=== PATIENT | male | born 1955 | race Caucasian/White ===

== ENCOUNTER 2020-05-22 12:38 | Outpatient (REF) | payer OTHER, SELFPAY ==
--- NOTE | 2020-05-22 13:00 | CT_ITS ---
EXAMINATION: CT CHEST SCREENING CLINICAL INFORMATION: Lung cancer screening COMPARISON: Previous exams most recent April 2019 TECHNIQUE: Multidetector volumetric CT imaging of the chest is performed without contrast using low dose technique. Additional 2D coronal and sagittal reformatted images and axial 3D maximum intensity projection (MIP) images are generated on the CT workstation. This CT examination was performed using dose optimization techniques as appropriate, variously including the following: *Automated exposure control *Adjustment of mA and/or kV according to patient size (this includes techniques or standardized protocols for targeted exams where dose is matched to indication/reason for exam; i.e. extremities or head) *Use of iterative reconstruction technique DLP: 60 mGy-cm FINDINGS: LUNGS: There is evidence of mild emphysema. The questioned 2 mm left upper lobe nodule axial image 205 series 5 is stable. No other pulmonary nodule is seen. There is linear scarring or segmental atelectasis at the lung bases. No endobronchial or endotracheal lesion is seen. MEDIASTINUM: There are small mediastinal lymph nodes. The heart does not appear enlarged. There is mild coronary artery calcification. There is no pericardial effusion. The thoracic aorta is normal in caliber. PLEURA: There is no pleural effusion. No pleural mass or thickening. AXILLA: There are small bilateral axillary lymph nodes. No enlarged lymph nodes or chest wall mass is seen. UPPER ABDOMEN: The low-attenuation left adrenal nodule is stable. OSSEOUS STRUCTURES: There are degenerative changes of the spine. IMPRESSION: Mild emphysema. Stable 2 mm left upper lobe nodule. Mild coronary artery calcification. ASSESSMENT: Lung-RADS category 2: Benign RECOMMENDATION: Annual low-dose chest CT follow-up recommended.
== END 2020-05-22 12:39 | disposition home or self-care (01) ==
LOC: HO.CT 12:38
PROVIDERS: PCP Nurse Practitioner Family; Visit Provider Surgery
DX: Z12.2 Encounter for screening for malignant neoplasm of respiratory organs (principal); F17.210 Nicotine dependence, cigarettes, uncomplicated
CPT/HCPCS: 71250; G0297

== ENCOUNTER 2021-07-24 08:02 | Outpatient (REF) | payer MEDICARE, OTHER, SELFPAY ==
[2021-07-24 11:43] LABS: Appearance Urine CLEAR; Color Urine YELLOW; Glucose Urine UA NEG (NEG); Leukocyte Esterase Urine NEG (NEG); Nitrite Urine NEG (NEG); PH 5.5 (5.0-8.0); Specific Gravity - Urine 1.025 (1.005-1.025); Urine Blood NEG (NEG); Urine Ketones NEG (NEG); Urine Protein NEG (NEG-TRACE)
[2021-07-24 12:00] LABS: Alanine Aminotransferase 19 U/L (0-40); Albumin Level 4.2 g/dL (3.5-5.0); Alkaline Phosphatase 93 U/L (39-117); Anion Gap 15 (12-20); Aspartate Amino Transferase 16 U/L (5-37); Bilirubin Total 0.6 mg/dL (0.0-1.0); Blood Urea Nitrogen 11 mg/dL (9-16); Calcium 9.6 mg/dL (8.4-10.2); Carbon Dioxide 26 mmol/L (22-29); Chloride 104 mmol/L (96-108); Cholesterol 266 mg/dL; Estimated Glomerular Filt Rate > 60; Glucose Fasting 87 mg/dL (60-99); HDL Cholesterol 27 mg/dL; LDL Cholesterol Calculated 187 mg/dl; Potassium 4.3 mmol/L (3.3-5.1); Sodium 141 mmol/L (135-145); Total Protein 6.8 g/dL (6.5-8.0); Triglycerides 261 mg/dL
[2021-07-24 12:21] LABS: Prostate Specific Antigen Scr 1.71 ng/mL (<0.05-4.0)
== END 2021-07-24 08:03 | disposition home or self-care (01) ==
LOC: HO.HMGCLDS 08:02
PROVIDERS: PCP Nurse Practitioner Family; Visit Provider Nurse Practitioner Family
DX: Z00.00 Encounter for general adult medical examination without abnormal findings (principal); Z12.5 Encounter for screening for malignant neoplasm of prostate
CPT/HCPCS: 36415; 80053; 80061; 81003; 84153; 84443

== ENCOUNTER 2021-08-11 12:38 | Outpatient (REF) | payer MEDICARE, OTHER, SELFPAY ==
--- NOTE | ~2021-08-11 | CT_ITS ---
EXAMINATION: CT CHEST SCREENING CLINICAL INFORMATION: Nicotine dependence. Current smoker. 50 pack-year history. COMPARISON: 05/22/2020 and 05/14/2019. TECHNIQUE: Multidetector volumetric CT imaging of the chest was performed without contrast using low-dose technique. Additional 2D coronal and sagittal reformatted images and axial 3D maximum intensity projection (MIP) images were generated on the CT workstation. This CT examination was performed using dose optimization techniques as appropriate, variously including the following: *Automated exposure control *Adjustment of mA and/or kV according to patient size (this includes techniques or standardized protocols for targeted exams where dose is matched to indication/reason for exam; i.e. extremities or head) *Use of iterative reconstruction technique DLP: 56 mGy-cm FINDINGS: LUNGS: Central airways patent. No significant bronchial wall thickening is seen. No bronchiectasis. No significant changes of emphysema appreciated. There are some scattered sub-4 mm densities present. There is a linear scar seen within the lingula. There is a linear region of scarring seen within the right middle lobe. There is a 4 mm noncalcified density along the right pericardium on image 189 of 542. This is a stable finding. MEDIASTINUM: Heart normal size. Coronary artery calcification present. No pericardial effusion. No thoracic aortic aneurysm. No mediastinal or hilar lymphadenopathy. Visualized thyroid unremarkable. PLEURA: There is no pleural effusion. No pleural mass or thickening. AXILLAE: No lymphadenopathy. UPPER ABDOMEN: Unremarkable. OSSEOUS STRUCTURES: No suspicious bony abnormality is identified. There is mild scoliosis of the thoracic spine convex left superiorly and convex right inferiorly. CT/CT lung screening IMPRESSION: Stable appearance of the chest. ASSESSMENT: Lung-RADS category 2: Benign RECOMMENDATION: Routine annual low-dose CT screening in 12 months.
== END 2021-08-11 12:39 | disposition home or self-care (01) ==
LOC: HO.CT 12:38
PROVIDERS: Visit Provider Physician Assistant Medical
DX: Z12.2 Encounter for screening for malignant neoplasm of respiratory organs (principal); F17.210 Nicotine dependence, cigarettes, uncomplicated
CPT/HCPCS: 71271

== ENCOUNTER 2022-01-06 09:57 | Outpatient (REF) | payer MEDICARE, OTHER, SELFPAY ==
[2022-01-06 11:41] LABS: Appearance Urine CLEAR; Color Urine YELLOW; Glucose Urine UA NEG (NEG); Leukocyte Esterase Urine NEG (NEG); Nitrite Urine NEG (NEG); Specific Gravity - Urine >= 1.030 (1.005-1.025); Urine Blood NEG (NEG); Urine Ketones NEG (NEG); Urine Protein NEG (NEG-TRACE)
[2022-01-06 12:18] LABS: Alanine Aminotransferase 19 U/L (0-40); Alkaline Phosphatase 91 U/L (39-117); Anion Gap 10 (12-20); Aspartate Amino Transferase 16 U/L (5-37); Bilirubin Total 0.4 mg/dL (0.0-1.0); Blood Urea Nitrogen 16 mg/dL (9-16); Calcium 9.1 mg/dL (8.4-10.2); Carbon Dioxide 27 mmol/L (22-29); Chloride 106 mmol/L (96-108); Cholesterol 149 mg/dL; Estimated Glomerular Filt Rate > 60; Glucose Fasting 94 mg/dL (60-99); HDL Cholesterol 29 mg/dL; LDL Cholesterol Calculated 91 mg/dl; Potassium 4.3 mmol/L (3.3-5.1); Sodium 139 mmol/L (135-145); Total Protein 6.4 g/dL (6.5-8.0); Triglycerides 145 mg/dL
[2022-01-06 12:28] LABS: TSH reflex Free T4 1.12 uIU/mL (0.32-4.0)
== END 2022-01-06 09:58 | disposition home or self-care (01) ==
LOC: HO.HMGCLDS 09:57
PROVIDERS: PCP Nurse Practitioner Family; Visit Provider Nurse Practitioner Family
DX: Z12.5 Encounter for screening for malignant neoplasm of prostate (principal); E78.5 Hyperlipidemia, unspecified
CPT/HCPCS: 36415; 80053; 80061; 81003; 84153; 84443

== ENCOUNTER 2022-07-12 08:08 | Outpatient (REF) | payer MEDICARE, OTHER, SELFPAY ==
[2022-07-12 12:15] LABS: Cholesterol 151 mg/dL; HDL Cholesterol 31 mg/dL; LDL Cholesterol Calculated 84 mg/dl; Triglycerides 182 mg/dL
== END 2022-07-12 08:09 | disposition home or self-care (01) ==
LOC: HO.HMGCLDS 08:08
PROVIDERS: PCP Nurse Practitioner Family; Visit Provider Nurse Practitioner Family
DX: Z13.89 Encounter for screening for other disorder (principal)
CPT/HCPCS: 36415; 80061

== ENCOUNTER 2022-07-21 09:06 | Day surgery (SDC) | payer MEDICARE, OTHER, SELFPAY ==
--- NOTE | 2022-07-20 10:00 | P.CONAN_ITS ---
HPI - Anesthesia Eval Consult details Narrative: 67yo M for Colonoscopy PMFSH Active Problems Active Problems: All Active Problems (Updated 01/13/22 @ 10:36 by Mike Florentino [facility]) Screening for colon cancer (Acute) Screening PSA (prostate specific antigen) (Acute) Dyslipidemia (Acute) Lung nodules (Acute) Screening PSA (prostate specific antigen) (Acute) Physical exam (Acute) Past Medical History Medical History Dyslipidemia Smoker Social History Social History Housing: House Patient Tobacco Use Status: Current everyday Tobacco user Tobacco use type: Cigarette Cigarette Packs Per Day: 1 Cigarettes Per Day: 20.0 e-Cigarette/Vaping Use: Never Used Second Hand Smoke Exposure: No Use of substances other than those prescribed or required for medical reasons: No Advance Directives: No Advance Directives Information Provided: Yes service: Yes Current occupational status: retired Cognitive needs: No Hearing needs: No Vision needs: No Meds Allergies Allergy/AdvReac Type Severity Reaction Status Date / Time pectin Allergy Swelling Verified 01/13/22 10:20 Exam Exam Date and Time: July 20, 2022 1000 Pertinent Lab Results Pertinent Lab Results: Laboratory Tests 01/06/22 10:05 Sodium 139 Potassium 4.3 Chloride 106 Carbon Dioxide 27 BUN 16 Creatinine 1.05 Assessment and Plan Assessment Anesthesia Assessment: Chart Reviewed
[2022-07-21 09:17] VITALS: BP 113/85; PULSE 108; RESP 16; TEMP 36.3; O2SAT 96; BMI 25.1
[2022-07-21] MEDS: Lactated Ringers 1,000 ML 100 ML IVCONT (09:34)
--- NOTE | 2022-07-21 10:10 | P.CONAN_ITS ---
[facility] Active Problems Active Problems: All Active Problems (Updated 07/20/22 @ 10:01 by Serena Maxwell NP) Screening for colon cancer (Acute) Screening PSA (prostate specific antigen) (Acute) Lung nodules (Acute) Screening PSA (prostate specific antigen) (Acute) Physical exam (Acute) Past Medical History Medical History Dyslipidemia Smoker Family History Family history of problems with anesthesia: No Surgical History History of Problems with Anesthesia: No Social History Social History Housing: House Patient Tobacco Use Status: Current everyday Tobacco user Tobacco use type: Cigarette Cigarette Packs Per Day: 1 Cigarettes Per Day: 20.0 e-Cigarette/Vaping Use: Never Used Second Hand Smoke Exposure: No Use of substances other than those prescribed or required for medical reasons: No Advance Directives: No Advance Directives Information Provided: Yes service: Yes Current occupational status: retired Cognitive needs: No Hearing needs: No Vision needs: No Meds Allergies Allergy/AdvReac Type Severity Reaction Status Date / Time pectin Allergy Swelling Verified 01/13/22 10:20 Active Medications: Current Medications Albuterol Sulfate (Albuterol Sulfate (0.083%) 2.5 Mg/3 Ml Vial.Neb) 2.5 mg INHALE ONCE PRN PRN Reason: Shortness of Breath/Wheezing Lactated Ringer's (Lr) 1,000 mls @ 100 mls/hr IVCONT .Q10H MICHELE Last Admin: 07/21/22 09:34 Dose: 100 mls/hr Sodium Biphosphate/Sodium Phosphate (Sodium Phosphate,[place]-Dibasic 133 Ml Enema) 133 ml W[place] ONCE PRN PRN Reason: Poor Colonoscopy Prep Results Exam Exam Date and Time: July 21, 2022 1010 Height,Weight and Vital Signs: Height 5 ft 10 in Weight 79.379 kg Last Vital Signs Temp 97.4 F 07/21/22 09:17 Pulse 108 H 07/21/22 09:17 Resp 16 07/21/22 09:17 BP 113/85 07/21/22 09:17 Pulse Ox 96 07/21/22 09:17 O2 Del Method 07/21/22 09:17 Airway Mallampati Class: II TM Dist: >3cm Neck ROM: Full Denture: Upper Partial: Lower Heart: rr Lungs: cta Assessment and Plan Final Anesthetic Review Family History of Problems with Anesthesia: No History of Problems with Anesthesia: No NPO: Yes ASA Class: II Final Preanesthetic Review: No Changes in Pt Med Stat Anesthetic Plan Anesthetic Plan: MAC:
[2022-07-21 11:11] VITALS: BP 107/76; PULSE 102; RESP 18; TEMP 36.3; O2SAT 93
--- NOTE | 2022-07-21 11:13 | PM.OP ---
Brief Operative Note Date of Service: 07/21/22 Pre-op diagnosis: Screening Post-op diagnosis: other (Polyps) Procedure: Colonoscopy to the cecum and TI with bx/removal of polyps, and hot snare polypectomy x 1 at 20cm Surgeon: Chava Allen Anesthesia: MAC Was an Grounds/Maintenance Specialist used for this Procedure?: No Estimated blood loss (mL): 2.0 Pathology: other (A. Ascending colon polyp B. Polyp at 20cm C. Rectal polyp) Condition: stable Disposition: PACU
[2022-07-21 11:33] VITALS: BP 109/66; PULSE 94; RESP 18; TEMP 36.3; O2SAT 100
--- NOTE | 2022-07-21 12:00 | OP_ITS ---
SURGEON: Chava Allen MD INDICATIONS: The patient presents for evaluation of personal history of tubular adenomas of the colon and need for colorectal cancer screening. Full consent has been obtained from him for this, including risks of bleeding and perforation. PREOPERATIVE DIAGNOSIS: POSTOPERATIVE DIAGNOSIS: PROCEDURE PERFORMED: ESTIMATED BLOOD LOSS: COMPLICATIONS: ANESTHESIA: Medication Used: Monitored anesthesia care. ASSISTANTS: SPECIMENS: PREOPERATIVE DIAGNOSES: Personal history of tubular adenomas of the colon and colorectal cancer screening. POSTOPERATIVE DIAGNOSES: Personal history of tubular adenomas of the colon and colorectal cancer screening, colon polyps, diverticulosis, and internal hemorrhoids. PROCEDURES PERFORMED: Colonoscopy to the cecum and terminal ileum with hot snare polypectomy and biopsy and removal of polyps. DESCRIPTION OF PROCEDURE: The patient was placed in the left lateral decubitus position. The digital rectal exam revealed no abnormalities. The Olympus video pediatric colonoscope was entered into the rectum and advanced easily to the cecum. Once in the cecum, I did identify normal-appearing cecal pouch with appendiceal orifice and a normal-appearing ileocecal valve. The terminal ileum was cannulated and appeared normal. The scope was withdrawn back in the colon. The entire cecum and ileocecal valve appeared normal. The scope was slowly withdrawn assessing all mucosal surfaces carefully. Preparation was excellent. In the ascending colon, was an approximately 4 mm polyp, which was biopsied and completely removed with a cold biopsy forceps. At 20 cm, was an approximately 6 to 8 mm polyp, which was removed by hot snare polypectomy and recovered by suction. The polypectomy site appeared clean, without any sign of residual polyp nor bleeding. In the rectum, was an approximately 3 or 4 mm polyp, which was biopsied and completely removed with a cold biopsy forceps. I did not visualize any other polyps, colitis, nor angiodysplasia. There was a moderate amount of sigmoid diverticulosis. In the rectum, the scope was retroflexed visualizing internal hemorrhoids, but no other pathology. The rectal mucosa appeared normal. The scope was straightened and withdrawn from the patient. He tolerated the procedure well and was returned to the recovery area in stable condition. IMPRESSION: 1. Colon polyps. 2. Diverticulosis. 3. Internal hemorrhoids. PLAN: The results of the pathology will be checked. I would recommend a repeat colonoscopy in 5 years for further screening purposes. He was advised not to use any aspirin or NSAIDs for 1 week. MD JUNITO Mario/KRISTEL / [id number]
== END 2022-07-21 12:06 | disposition home or self-care (01) ==
PROVIDERS: PCP Nurse Practitioner Family; Visit Provider Internal Medicine
PROC: 0DJD8ZZ Inspection of Lower Intestinal Tract, Via Natural or Artificial Opening Endoscopic (ICD-10-PCS; CPT 45378; principal; 2022-07-21 10:20)
DX: Z12.11 Encounter for screening for malignant neoplasm of colon (principal); D12.2 Benign neoplasm of ascending colon; D12.6 Benign neoplasm of colon, unspecified; K62.1 Rectal polyp; K57.30 Diverticulosis of large intestine without perforation or abscess without bleeding; K64.8 Other hemorrhoids; Z86.010 Personal history of colon polyps; E78.5 Hyperlipidemia, unspecified; F17.210 Nicotine dependence, cigarettes, uncomplicated; Z79.899 Other long term (current) drug therapy
CPT/HCPCS: 45385; 45380; 88305

== ENCOUNTER 2022-09-01 16:21 | Outpatient (REF) | payer MEDICARE, OTHER, SELFPAY ==
--- NOTE | ~2022-09-01 | CT_ITS ---
EXAMINATION: CT CHEST SCREENING CLINICAL INFORMATION: Nicotine dependence. Current smoker. COMPARISON: 08/11/2021 TECHNIQUE: Multidetector volumetric CT imaging of the chest is performed without contrast using low dose technique. Additional 2D coronal and sagittal reformatted images and axial 3D maximum intensity projection (MIP) images are generated on the CT workstation. This CT examination was performed using dose optimization techniques as appropriate, variously including the following: *Automated exposure control *Adjustment of mA and/or kV according to patient size (this includes techniques or standardized protocols for targeted exams where dose is matched to indication/reason for exam; i.e. extremities or head) *Use of iterative reconstruction technique DLP: 59 mGy-cm FINDINGS: LUNGS: The central airways are patent. There is no consolidation. No pneumothorax. Unchanged 0.4 cm nodule along the mediastinal pleura of the right upper lobe on series 5 image 173. No new pulmonary nodules are identified. MEDIASTINUM: Normal heart size. No pericardial effusion. No mediastinal lymphadenopathy. CORONARY ARTERY CALCIFICATION: Present. PLEURA: There is no pleural effusion. No pleural mass or thickening. AXILLA: No lymphadenopathy. UPPER ABDOMEN: Unremarkable OSSEOUS STRUCTURES: No acute or suspicious osseous abnormality. Mild degenerative changes of the spine. CT/CT lung screening IMPRESSION: Unchanged 0.4 cm right upper lobe pulmonary nodule. ASSESSMENT: Lung-RADS category 2: Benign RECOMMENDATION: Routine annual low-dose CT screening in 12 months.
== END 2022-09-01 16:22 | disposition home or self-care (01) ==
LOC: HO.CT 16:21
PROVIDERS: PCP Nurse Practitioner Family; Visit Provider Physician Assistant Medical
DX: Z12.2 Encounter for screening for malignant neoplasm of respiratory organs (principal); F17.210 Nicotine dependence, cigarettes, uncomplicated
CPT/HCPCS: 71271

== ENCOUNTER 2023-06-01 14:56 | Outpatient (AMB) | payer MEDICARE, OTHER, SELFPAY ==
--- NOTE | 2023-06-01 14:57 | A.OFFPC_ITS ---
Vital Signs 06/01/23 15:00 Height 5 ft 10 in Weight 172 lb BMI 24.7 BP 120/78 Blood Pressure Location Lt brachial Position Sitting Pulse 66 Pulse Source Pulse Oximeter Pulse Oximetry (%) 99 Oxygen Delivery Method Room Air Intake Visit Reasons: Medication Follow Up Allergies pectin Allergy (Verified 06/01/23 15:01) Swelling Medication List - Last Reconciled 06/01/23 by NHAN Granado atorvastatin 10 mg PO BEDTIME 90 days Tobacco use date assessed: 06/01/23 Fall risk assessment: No Falls in past year Last assessed Fall Risk: 06/01/23 Dental Screening Dental Screen Date: 06/01/23 Did you have a dental visit in the last 12 months?: No Did you have a dental problem in the last 6 months where you did not have access to dental care?: No Was dental information given to patient?: Patient has dentist HPI Medication Follow Up HPI Details Pt is here for a PE. Will order labs. Colon screen is up to date. Due for PSA, will order. Denies dribbling with urination, weak stream, and frequent nocturia. Pt would rather not have a JERROD today. Pt is a smoker, follows up with thoracic for annual low-dose CTs. Pt would like to wait on Prevnar 20 vaccine, he just had COVID and flu vaccines on Tuesday. [facility] Medical History Dyslipidemia Smoker Social History Housing: House Patient Tobacco Use Status: Current everyday Tobacco user Tobacco use type: Cigarette Cigarette Packs Per Day: 1 Cigarettes Per Day: 20.0 e-Cigarette/Vaping Use: Never Used Second Hand Smoke Exposure: No service: Yes Current occupational status: retired Cognitive needs: No Hearing needs: No Vision needs: No Questionnaire Thrive Questionnaire Date Thrive assessed: 07/22/21 AUDIT C Alcohol Use Questionnaire (AUDIT-C) 1. How often do you have a drink containing alcohol?: Monthly or less 2. How many drinks containing alcohol do you have on a typical day when you are drinking?: 1 or 2 3. How often do you have six or more drinks on one occasion?: Never Total Score: 1 Score Reviewed/Action Taken: No JESICA-7 AMB Questionnaire JESICA-7 Date JESICA - 7 assessed: 12/08/21 Source: Developed by Drs. Chava Green, Belén Garcia, Dameon Das and colleagues, with an educational devon from [employer]. Review of Systems Const Denies chills and Denies fever(s) Eyes Denies blurry vision ENT Denies vertigo, Denies dizziness and Denies sore throat Card Denies chest pain at rest, Denies chest pain with activity, Denies diaphoresis, Denies dyspnea and Denies dyspnea on exertion Resp Denies cough, Denies dyspnea, Denies dyspnea on exertion and Denies wheezing GI Denies abdominal pain, Denies melena, Denies hematochezia, Denies constipation, Denies diarrhea and Denies loose stools Denies hematuria Musc Denies numbness and Denies tingling Skin/Breast Denies lesions Neuro Denies vertigo, Denies dizziness, Denies numbness and Denies tingling Psych Denies anxiety, Denies depression, Denies homicidal ideation, Denies suicidal ideation and Denies other (substance abuse) Aller/Immun Denies wheezing Physical exam (Primary Care) Vital Signs: Last Vital Signs Pulse 66 06/01/23 15:00 BP 120/78 06/01/23 15:00 Pulse Ox 99 06/01/23 15:00 Oxygen Delivery Method Room Air 06/01/23 15:00 BMI result Body Mass Index 24.7 Tobacco/Smoking Status: Tobacco use Status Tobacco use date assessed 06/01/23 06/01/23 15:04 Patient Tobacco Use Status Current everyday Tobacco 06/01/23 14:57 Tobacco use type Cigarette 06/01/23 14:57 e-Cigarette/Vaping Use Never Used 06/01/23 14:57 Thrive Assessment: Date of Thrive Assessment Date Thrive assessed 07/22/21 06/01/23 14:57 Const General: cooperative Nutritional Appearance: well nourished Orientation/consciousness: patient oriented x3 HENMT Head: Yes normal to inspection, Yes normocephalic and Yes atraumatic Ears: TM's normal bilaterally Eyes General: appearance normal, both eyes and all related structures Alignment and Position: alignment normal and position normal Neck Neck: Yes normal visual inspection and Yes no lymphadenopathy Thyroid: Thyroid normal Resp Effort & Inspection: normal respiratory effort Auscultation: clear to auscultation bilaterally and diminished lung sounds Cardio Rate: regular rate Rhythm: regular rhythm Heart sounds: S1 normal heart sound present, S2 normal heart sound present and no murmurs GI Palpation (GI): Soft to palpation and nontender Auscultation: normal bowel sounds Male General Exam: Yes normal external exam Penis: normal penis Scrotum: scrotum normal, testes descended bilaterally and no inguinal hernias Testes: no testicular mass Skin Rashes: no rashes Neuro General: patient oriented x3, moves all extremities, no focal motor deficits and deep tendon reflexes 2+ bilaterally Romberg Test: Negative Psych Appearance: grossly normal Mental Status: mental status grossly normal Speech and movement: Normal speech and movement present Affect: normal affect Attitude: cooperative Thought process: Normal thought process present Thought content: Normal thought content present Insight: Good insight present (Psych) Judgement: Good judgement present (Psych) Assessment and Plan Assessment & Plan (1) Dyslipidemia: Code(s): E78.5 - Hyperlipidemia, unspecified (2) Physical exam: Code(s): Z00.00 - Encounter for general adult medical examination without abnormal findings (3) Screening PSA (prostate specific antigen): Code(s): Z12.5 - Encounter for screening for malignant neoplasm of prostate (4) Smoker: Code(s): F17.200 - Nicotine dependence, unspecified, uncomplicated Plan The patient agreed to the use of a medical support assistant for this encounter. Scribed for NHAN Savage by Vivian Trejo medical support assistant, on 06/01/2023 at 15:10 EST Orders: Orders Prostate Specific Antigen Scr Today Z00.00 - Encounter for general adult medical examination without abnormal findings, Z12.5 - Encounter for screening for malignant neoplasm of prostate Complete Blood Count Auto Diff Today E78.5 - Hyperlipidemia, unspecified, Z00.00 - Encounter for general adult medical examination without abnormal findings Comprehensive [place]. Panel Fast Today E78.5 - Hyperlipidemia, unspecified, Z00.00 - Encounter for general adult medical examination without abnormal findings TSH reflex Free T4 Today E78.5 - Hyperlipidemia, unspecified, Z00.00 - Encounter for general adult medical examination without abnormal findings UA CC w/rflx Micro + Cult Today E78.5 - Hyperlipidemia, unspecified, Z00.00 - Encounter for general adult medical examination without abnormal findings Lipid Panel Today E78.5 - Hyperlipidemia, unspecified, Z00.00 - Encounter for general adult medical examination without abnormal findings AMB EKG-In Office Today F17.200 - Nicotine dependence, unspecified, uncomplicated, Z00.00 - Encounter for general adult medical examination without abnormal findings Medications: Changed From atorvastatin Schedule next PCP appt for future refills 10 mg PO BEDTIME 90 days 90 tabs 0RF To atorvastatin 10 mg PO BEDTIME 90 days 90 tabs 0RF Coding Level of Care Code Est Pt Prev Care >65y(83450) Diagnoses Dyslipidemia E78.5 Physical exam Z00.00 Screening PSA (prostate specific antigen) Z12.5 Smoker F17.200
[2023-06-01 15:00] VITALS: BP 120/78; PULSE 66; O2SAT 99; BMI 24.7
== END 2023-06-01 15:49 | disposition home or self-care (01) ==
PROVIDERS: PCP Nurse Practitioner Family; Visit Provider Nurse Practitioner Family
DX: Z00.00 Encounter for general adult medical examination without abnormal findings (principal); E78.5 Hyperlipidemia, unspecified; Z12.5 Encounter for screening for malignant neoplasm of prostate; F17.200 Nicotine dependence, unspecified, uncomplicated
CPT/HCPCS: 99397

== ENCOUNTER 2023-06-02 08:49 | Outpatient (REF) | payer MEDICARE, OTHER, SELFPAY ==
[2023-06-02 11:04] LABS: MANUAL DIFF FLAG NO
[2023-06-02 11:22] LABS: Appearance Urine Clear; Color Urine Yellow; Glucose Urine UA Negative (Negative); Leukocyte Esterase Urine Negative (Negative); Nitrite Urine Negative (Negative); PH 5.5 (5.0-9.0); Specific Gravity - Urine 1.015 (1.005-1.025); Urine Blood Negative (Negative); Urine Ketones Negative (Negative); Urine Protein Negative (Neg-Trace)
[2023-06-02 11:31] LABS: Basophils Absolute Auto 0.1 X10*3/uL (0.0-0.2); Basophils Percent Auto 1.3 % (0-2); Eosinophils Absolute Auto 0.1 X10*3/uL (0.0-0.4); Hematocrit 47.1 % (42.0-52.0); Hemoglobin 15.8 g/dl (14.0-18.0); Imm Gran Abs Auto 0.02 X10*3/uL (0.00-0.03); Imm Gran Pct Auto 0.4 % (0.0-0.4); Lymphocytes Absolute Auto 1.1 X10*3/uL (1.2-4.9); Lymphocytes Percent Auto 24.5 % (20-40); Mean Corpuscular HGB Conc 33.5 g/dl (31.0-36.0); Mean Corpuscular Hemoglobin 30.7 pg (27.0-33.0); Mean Corpuscular Volume 91.6 fL (80.0-98.0); Mean Platelet Volume 12.4 fL (9.4-12.4); Monocytes Absolute Auto 0.5 X10*3/uL (0.1-1.2); Monocytes Percent Auto 10.2 % (2-11); Neutrophils Absolute Auto 2.8 x10*3/uL (2.0-8.3); Neutrophils Percent Auto 60.6 % (45-73); Platelet Count 146 X10*3/uL (160-400); Red Blood Count 5.14 X10*6/uL (4.60-5.80); Red Cell Distribution Width 14.6 % (11.0-16.0); White Blood Count 4.6 X10*3/uL (4.8-10.8)
[2023-06-02 12:22] LABS: Prostate Specific Antigen Scr 1.95 ng/mL (<0.05-4.0)
[2023-06-02 12:36] LABS: TSH reflex Free T4 2.24 uIU/mL (0.32-4.0)
[2023-06-02 12:38] LABS: Anion Gap 13 (12-20)
[2023-06-02 12:42] LABS: Alanine Aminotransferase 17 U/L (0-40); Albumin Level 4.2 g/dL (3.5-5.0); Alkaline Phosphatase 106 U/L (39-117); Aspartate Amino Transferase 18 U/L (5-37); Bilirubin Total 0.6 mg/dL (0.0-1.0); Blood Urea Nitrogen 13 mg/dL (9-16); Calcium 9.8 mg/dL (8.4-10.2); Carbon Dioxide 25 mmol/L (22-29); Chloride 105 mmol/L (96-108); Cholesterol 154 mg/dL (<200); Estimated Glomerular Filt Rate > 60; Glucose Fasting 97 mg/dL (60-99); HDL Cholesterol 32 mg/dL (>40); LDL Cholesterol Calculated 95 mg/dL (<100); Potassium 3.9 mmol/L (3.3-5.1); Sodium 139 mmol/L (135-145); Triglycerides 136 mg/dL (<150)
== END 2023-06-02 08:50 | disposition home or self-care (01) ==
LOC: HO.HMGCLDS 08:49
PROVIDERS: PCP Nurse Practitioner Family; Visit Provider Nurse Practitioner Family
DX: Z00.00 Encounter for general adult medical examination without abnormal findings (principal); E78.5 Hyperlipidemia, unspecified; Z12.5 Encounter for screening for malignant neoplasm of prostate
CPT/HCPCS: 36415; 80053; 80061; 81003; 84153; 84443; 85025

== ENCOUNTER 2023-07-05 07:30 | Outpatient (REF) | payer MEDICARE, OTHER, SELFPAY ==
[2023-07-05 11:16] LABS: MANUAL DIFF FLAG NO
[2023-07-05 11:25] LABS: Basophils Absolute Auto 0.1 X10*3/uL (0.0-0.2); Basophils Percent Auto 1.3 % (0-2); Eosinophils Absolute Auto 0.2 X10*3/uL (0.0-0.4); Eosinophils Percent Auto 3.7 % (0-4); Hematocrit 48.3 % (42.0-52.0); Imm Gran Abs Auto 0.02 X10*3/uL (0.00-0.03); Imm Gran Pct Auto 0.4 % (0.0-0.4); Lymphocytes Absolute Auto 1.2 X10*3/uL (1.2-4.9); Lymphocytes Percent Auto 25.1 % (20-40); Mean Corpuscular HGB Conc 33.1 g/dl (31.0-36.0); Mean Corpuscular Hemoglobin 31.1 pg (27.0-33.0); Mean Corpuscular Volume 93.8 fL (80.0-98.0); Mean Platelet Volume 12.5 fL (9.4-12.4); Monocytes Absolute Auto 0.5 X10*3/uL (0.1-1.2); Monocytes Percent Auto 11.4 % (2-11); Neutrophils Absolute Auto 2.7 x10*3/uL (2.0-8.3); Neutrophils Percent Auto 58.1 % (45-73); Platelet Count 126 X10*3/uL (160-400); Red Blood Count 5.15 X10*6/uL (4.60-5.80); Red Cell Distribution Width 14.2 % (11.0-16.0); White Blood Count 4.6 X10*3/uL (4.8-10.8)
== END 2023-07-05 07:31 | disposition home or self-care (01) ==
LOC: HO.HMGCLDS 07:30
PROVIDERS: PCP Nurse Practitioner Family; Visit Provider Nurse Practitioner Family
DX: D69.6 Thrombocytopenia, unspecified (principal)
CPT/HCPCS: 36415; 85025

== ENCOUNTER → 2023-07-22 11:13 | Outpatient (BNV) | payer MEDICARE, OTHER, SELFPAY | PROVIDERS: PCP Nurse Practitioner Family; Visit Provider Internal Medicine Medical Oncology | DX: D69.6 Thrombocytopenia, unspecified (principal) | CPT/HCPCS: 99204; 99213 ==

== ENCOUNTER 2023-08-04 09:43 | Outpatient (REF) | payer MEDICARE, OTHER, SELFPAY ==
--- NOTE | ~2023-08-04 | US_ITS ---
EXAMINATION: US ABDOMEN COMPLETE CLINICAL INFORMATION: Thrombocytopenia, question splenomegaly.. COMPARISON: None available. TECHNIQUE: Real-time imaging of the abdominal viscera. FINDINGS: PANCREAS: No discrete mass or ductal dilatation. ABDOMINAL AORTA: Infrarenal abdominal aortic aneurysm measuring 3.6 x 3.3 cm. The left common iliac artery aneurysm measuring 3.1 x 2.5 cm. INFERIOR VENA CAVA: Visualized portions are normal. LIVER: Normal. The liver is normal in size. The liver contour is normal. Parenchymal echogenicity is normal. No focal hepatic lesion. There is no intrahepatic biliary duct dilatation seen. GALLBLADDER: Cholesterol crystal artifact consistent with adenomyomatosis. No discrete cholelithiasis. COMMON: Normal in caliber measuring 0.5 cm in diameter. RIGHT KIDNEY: Possible 2 mm nonobstructing calculus in the mid kidney. No hydronephrosis. No renal calculi or focal parenchymal lesions. The kidney measures 11.0 cm in maximum dimension. LEFT KIDNEY: Normal. No hydronephrosis. No renal calculi or focal parenchymal lesions. The kidney measures 10.2 cm in maximum dimension. SPLEEN: Normal. The spleen measures 10.6 cm in maximum dimension. FREE FLUID: None. US/US abdomen complete IMPRESSION: Negative for splenomegaly. Infrarenal abdominal aortic aneurysm measuring 3.6 cm. Left common iliac artery aneurysm measuring 3.1 cm. Vascular surgery referral is recommended. Possible 2 mm nonobstructing calculus mid right kidney.
== END 2023-08-04 09:44 | disposition home or self-care (01) ==
LOC: HO.HMGCX 09:43
PROVIDERS: PCP Nurse Practitioner Family; Visit Provider Internal Medicine Medical Oncology
DX: D69.6 Thrombocytopenia, unspecified (principal)
CPT/HCPCS: 76700

== ENCOUNTER 2023-08-17 14:25 | Outpatient (AMB) | payer MEDICARE, OTHER, SELFPAY ==
--- NOTE | 2023-08-17 15:34 | MHC.OFFWIV ---
Intake Vital Signs 08/17/23 15:35 Height 5 ft 10 in Weight 176 lb 4 oz BMI 25.3 BP 112/74 Blood Pressure Location Rt brachial Position Sitting Pulse 83 Pulse Source Pulse Oximeter Temp 97.4 F Temp Source Temporal Artery Scan Pulse Oximetry (%) 97 Oxygen Delivery Method Room Air Intake Visit Reasons: EST/pain in right side neck radiating down arm Intake Note: Pt is here c/o right side neck pain radiating down arm. Patient Tobacco Use Status: Current everyday Tobacco user Allergies pectin Allergy (Verified 08/17/23 15:43) Swelling Medication List - Last Reconciled 08/17/23 by Jb Mcintyre MD atorvastatin 10 mg PO BEDTIME 90 days Do you need a note to return to daycare/school/sports/work: No HPI EST/pain in right side neck radiating down arm HPI Details 68-year-old male presents to the office for a sick visit. For the past 3 hours patient is complaining of pain on the left side of the neck radiating up she to the upper arm. Pain is constant in nature. He reports that the pain symptoms started at rest. No associated diaphoresis or shortness of breath. Patient walked into the office. [facility] Medical History Dyslipidemia Smoker Family History (Updated 07/22/23 @ 11:18 by Anna Balderrama) Brother Stage 4 lung cancer Social History (Updated 07/22/23 @ 11:19 by Anna Balderrama) Household Members: Spouse Housing: House Patient Tobacco Use Status: Current everyday Tobacco user Tobacco use type: Cigarette Cigarette Packs Per Day: 1 e-Cigarette/Vaping Use: Never Used Second Hand Smoke Exposure: No service: Yes Current occupational status: retired Cognitive needs: No Hearing needs: No Vision needs: No Physical Exam Vital Signs: Last Vital Signs Temp 97.4 F 08/17/23 15:35 Pulse 83 08/17/23 15:35 BP 112/74 08/17/23 15:35 Pulse Ox 97 08/17/23 15:35 Oxygen Delivery Method Room Air 08/17/23 15:35 BMI result Body Mass Index 25.3 Const General: cooperative and healthy appearing Nutritional Appearance: well nourished Orientation/consciousness: patient oriented x3 Limitations: no limitations HEENT Head: Yes normal to inspection Eyes General: appearance normal, both eyes and all related structures Neck Neck: Yes normal visual inspection Chest Chest palpation & inspection: normal palpation of entire chest wall Resp Effort & Inspection: normal respiratory effort Neuro General: patient oriented x3 Office Procedures EKG Details: Junctional tachycardia. EKG compared to the previous showed no changes. [id number], Complete Assessment & Plan Assessment & Plan (1) Shoulder pain: Code(s): M25.519 - Pain in unspecified shoulder Plan: Shoulder pain symptoms were worked up for cardiac etiology. EKG was unremarkable. Chest x-ray images were personally reviewed by me and showed no changes. Patient was informed that it is impossible to rule out cardiac etiology for his symptoms and he would knee blood work done including checking cardiac troponins. The lab is closed and I offered him to order the lab to be done at [facility]. Patient declined to proceed there. Should symptoms worsen, I cautioned him and advised him to go to the emergency room. Orders: Orders XR chest 2V 08/17/23 R05.9 - Cough, unspecified AMB EKG-In Office 08/17/23 R07.9 - Chest pain, unspecified Coding Level of Care Code Est Pt Level 4 (78662) Diagnoses Shoulder pain M25.519 CPT Codes EKG - CPT: 77828-[id number], Complete ([id number])
[2023-08-17 15:35] VITALS: BP 112/74; PULSE 83; TEMP 36.3; O2SAT 97; BMI 25.3
== END 2023-08-17 16:48 | disposition home or self-care (01) ==
PROVIDERS: PCP Nurse Practitioner Family; Visit Provider Internal Medicine
DX: M25.519 Pain in unspecified shoulder (principal)
CPT/HCPCS: 93000; 99214

== ENCOUNTER 2023-08-17 15:52 | Outpatient (REF) | payer MEDICARE, OTHER, SELFPAY | END 2023-08-17 15:53 | disposition home or self-care (01) | LOC: HO.HMGCX 15:52 | PROVIDERS: PCP Nurse Practitioner Family; Visit Provider Internal Medicine | DX: R05.9 Cough, unspecified (principal); R07.9 Chest pain, unspecified | CPT/HCPCS: 71046 ==

== ENCOUNTER 2023-09-22 10:00 | Outpatient (RCR) | payer MEDICARE, OTHER, SELFPAY ==
[2023-07-22 11:19] VITALS: BP 130/81; PULSE 80; O2SAT 99; BMI 25.3
[2023-07-22 12:00] LABS: MANUAL DIFF FLAG NO
[2023-07-22 12:05] LABS: Basophils Absolute Auto 0.1 X10*3/uL (0.0-0.2); Basophils Percent Auto 1.3 % (0-2); Eosinophils Absolute Auto 0.1 X10*3/uL (0.0-0.4); Hematocrit 49.9 % (42.0-52.0); Hemoglobin 16.8 g/dl (14.0-18.0); Imm Gran Abs Auto 0.02 X10*3/uL (0.00-0.03); Imm Gran Pct Auto 0.4 % (0.0-0.4); Lymphocytes Percent Auto 22.7 % (20-40); Mean Corpuscular HGB Conc 33.7 g/dl (31.0-36.0); Mean Corpuscular Hemoglobin 30.7 pg (27.0-33.0); Mean Corpuscular Volume 91.2 fL (80.0-98.0); Monocytes Absolute Auto 0.5 X10*3/uL (0.1-1.2); Monocytes Percent Auto 10.5 % (2-11); Neutrophils Absolute Auto 2.9 x10*3/uL (2.0-8.3); Neutrophils Percent Auto 63.1 % (45-73); Platelet Count 117 X10*3/uL (160-400); Red Blood Count 5.47 X10*6/uL (4.60-5.80); Red Cell Distribution Width 14.1 % (11.0-16.0); White Blood Count 4.6 X10*3/uL (4.8-10.8)
[2023-07-22 12:17] LABS: Rheumatoid Factor 15.4 IU/mL (<15.0)
[2023-07-22 12:19] LABS: Alanine Aminotransferase 20 U/L (0-40); Albumin Level 4.4 g/dL (3.5-5.0); Alkaline Phosphatase 102 U/L (39-117); Anion Gap 11 (12-20); Aspartate Amino Transferase 17 U/L (5-37); Bilirubin Total 0.5 mg/dL (0.0-1.0); Blood Urea Nitrogen 13 mg/dL (9-16); Calcium 9.6 mg/dL (8.4-10.2); Carbon Dioxide 29 mmol/L (22-29); Chloride 103 mmol/L (96-108); Creatinine Clr Calc Pharmacy 66.6; Estimated Glomerular Filt Rate > 60; Glucose Random 96 mg/dL (60-115); Lactate Dehydrogenase 156 U/L (118-273); Potassium 4.2 mmol/L (3.3-5.1); Sodium 139 mmol/L (135-145); Total Protein 7.3 g/dL (6.5-8.0)
[2023-07-22 12:45] LABS: Erythrocyte Sedimentation Rate 3 MM/HR (0-15)
--- NOTE | 2023-07-22 12:59 | PM.HEMONCCN ---
Subjective - Subjective Chief complaint: Consult for: Thrombocytopenia. Patient: new to practice Consult date: 07/22/23 Primary Care Provider: MARIA R Lopez Medical Summary: DIAGNOSIS: THROMBOCYTOPENIA. HPI - Consult Narrative Reason for consult: Consult for: Thrombocytopenia. Narrative: Alvaro Wahl is a 68 year old gentleman referred by Mike florentino, on account of thrombocytopenia. CBC from 07/05/2023: WBC 4.6, HGB 16, HCT 48.3, MCV 93.8, PLT 126. CBC from 06/02/2023: WBC 4.6, HGB 15.8, HCT 47, PLT 146. FAMILY HISTORY: Brother had lung cancer he was a nonsmoker. PERSONAL HISTORY: He worked in [employer] with the [employer] in [employer]. He is . He has no children. He has been smoking a pack a day since age of 13. He used to drink heavily in his 30s and 40s now he would drink a couple of beers a month. ROS: He is feeling well denies easy fatigability. No fever chills or night sweats. Appetite is fine. Weight is stable. No headache no dizziness. No chest pain or trouble breathing. He denies any abdominal pain nausea vomiting heartburn indigestion. Bowels are working without any gross blood in it. He had a colonoscopy couple of years ago. He denies dysuria or hematuria. No joint pain or muscle pain. Denies any focal weakness. Denies depression. No skin rashes or pruritus. Denies easy bruising nor systemic bleeding. Review of Systems - Constitutional Reports system reviewed and no additional complaints, except as documented, Denies anorexia, Denies fatigue, Denies lack of energy, Denies malaise, Denies night sweats, Denies poor appetite, Denies weight loss - Eyes Reports system reviewed and no additional complaints, except as documented - ENT Reports system reviewed and no additional complaints, except as documented - Cardiovascular Reports system reviewed and no additional complaints, except as documented - Respiratory Reports no additional respiratory complaints - Gastrointestinal Reports system reviewed and no additional complaints, except as documented - Genitourinary Genitourinary: Reports no additional male genitourinary complaints - Musculoskeletal Reports system reviewed and no additional complaints, except as documented - Integumentary/Breasts Skin/Breast: Reports no additional skin complaints - Neurologic Reports system reviewed and no additional complaints, except as documented - Psychiatric Reports system reviewed and no additional complaints, except as documented - Endocrine Reports no additional endocrine complaints - Hematologic/Lymphatic Reports system reviewed and no additional complaints, except as documented - Allergic/Immunologic Reports system reviewed and no additional complaints, except as documented Oncology Screenings - ECOG Performance Status ECOG Performance Status: 0 [facility] Medical History: Medical History (Last Reviewed 07/22/23 @ 11:18 by Anna Balderrama) Dyslipidemia Smoker Functional capacity: independent ambulation Patient : No Family History: Family History (Last Updated 07/22/23 @ 11:18 by Anna Balderrama) Brother Stage 4 lung cancer Social History: Social History (Last Updated 07/22/23 @ 11:19 by Anna Balderrama) Living Situation History: Household Members: Spouse Housing: House Tobacco History: Patient Tobacco Use Status: Current everyday Tobacco Tobacco use type: Cigarette Cigarette Packs Per Day: 1 e-Cigarette/Vaping Use: Never Used Second Hand Smoke Exposure: No 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 Current occupational status: retired Home Medications and Allergies Allergies Allergy/AdvReac Type Severity Reaction Status Date / Time pectin Allergy Swelling Verified 07/22/23 11:19 Physical Exam Vital signs: Vital Signs Pulse 80 07/22/23 11:19 BP 130/81 07/22/23 11:19 Pulse Ox 99 07/22/23 11:19 O2 Del Method Room Air 07/22/23 11:19 Intake & Output 07/21/23 07/22/23 07/22/23 18:59 06:59 18:59 Other: Weight 80 kg [place] Weight in Grams [id number] Weight 80 kg - Constitutional Present: no acute distress - Routine HEENT Exam Head: Present: normal inspection, normocephalic Eye: Present: normal appearance ENT: Present: mucous membranes moist - Routine Neck Exam Present: supple - Routine Respiratory Exam Present: CTAB - Routine Cardiovascular Exam Cardiovascular: Present: RRR, S1, S2 - Routine Abdominal Exam Present: soft, nontender - Routine Extremities Exam Present: normal inspection Hem/Onc Consult Result - Labs CBC & Chem 7: 07/22/23 11:55 07/22/23 11:55 Labs: Short CBC 07/22/23 Range/Units 11:55 WBC 4.6 L (4.8-10.8) X10*3/uL Hgb 16.8 (14.0-18.0) g/dl Hct 49.9 (42.0-52.0) % Plt Count 117 L (160-400) X10*3/uL BMP 07/22/23 11:55 Sodium 139 Potassium 4.2 Chloride 103 Carbon Dioxide 29 BUN 13 Creatinine 1.11 Calcium 9.6 Liver Function 07/22/23 Range/Units 11:55 Total Bilirubin 0.5 (0.0-1.0) mg/dL AST 17 (5-37) U/L ALT 20 (0-40) U/L Alkaline Phosphatase 102 (39-117) U/L Albumin 4.4 (3.5-5.0) g/dL Assessment and Plan Patient Active problem list reviewed?: Yes (1) Thrombocytopenia Status: Acute Assessment and plan: This is a pleasant 68-year-old gentleman, who is in good general health. He has been noted to have thrombocytopenia. DIFFERENTIAL DIAGNOSIS: 1. RELATED TO INFECTION: Chronic infection like HIV versus hepatitis. 2. MEDICATION RELATED: He is on atorvastatin. There are recent reports of statin induced thrombocytopenia. Among these atorvastatin appears to be the most common want to cause this complication. 3. ITP: Is also a possibility. 4. COLLAGEN VASCULAR DISORDER: Is in the differential. SLE versus rheumatoid arthritis. 5. UNDERLYING MYELO INFILTRATIVE DISORDER: MULTIPLE MYELOMA , MDS OR LYMPHOMA. PLAN: I will proceed with further evaluation. Check CBCD: WBC 4.6, HGB 16.8, HCT 49.9, PLT 117. Check collagen vascular profile: ESR 3, RA 15.6, JO: positive 1:320, nuclear and speckled pattern. Check LDH: 156. Check an SIEP: Normal. I will request his primary to see if the atorvastatin can be held or substituted. I will follow the blood count over time on a monthly basis. If it keeps dropping will proceed with a bone marrow exam for further evaluation. He was advised to stay away from nonsteroidals and aspirin. All his questions were answered to satisfaction. He will return in 1 month for a follow-up visit. He will be referred to Rheumatology for further evaluation of the above collagen vascular profile. Thank you, Cc: Dr. Florentino. - Time Spent With Patient Time Spent with Patient (in minutes): 30
--- NOTE | 2023-07-22 13:45 | MHC.HEMONCMA ---
patient seen today for thrombocytopenia, vss, labs, following up with provider in 2 months
[2023-07-23 04:45] LABS: HBc Num1 0.11 S/CO (0.00-0.79); HBsAGNum1 0.26 S/CO (0.00-0.99); Hepatitis B Core Antibody Nonreactive (Nonreactive); Hepatitis B Surface Antigen Negative (Negative)
[2023-07-23 04:54] LABS: HBS Num1 0.58 mIU/mL (0-7.99); HIV AB/AG Nonreactive (Nonreactive); HIV Num 1 0.04 S/CO (0.00-0.99); ~HepC Num1 0.07 S/CO (0.00-0.79); ~Hepatitis B Surface Antibody NONREACTIVE (Nonreactive); ~Hepatitis C Antibody Nonreactive (Nonreactive)
[2023-07-27 13:19] LABS: IgA 218 mg/dL (70-320); IgG 767 mg/dL (600-1540); IgM 80 mg/dL (50-300)
[2023-07-27 14:38] LABS: Anti Nuclear Antibody Pattern Nuclear, Speckled; Anti Nuclear Antibody Screen POSITIVE (NEGATIVE)
[2023-09-22 10:04] LABS: MANUAL DIFF FLAG NO
[2023-09-22 10:05] VITALS: PULSE 75; O2SAT 99; BMI 25.6
[2023-09-22 10:11] LABS: Basophils Absolute Auto 0.1 X10*3/uL (0.0-0.2); Basophils Percent Auto 1.6 % (0-2); Eosinophils Absolute Auto 0.2 X10*3/uL (0.0-0.4); Eosinophils Percent Auto 3.1 % (0-4); Hematocrit 50.6 % (42.0-52.0); Hemoglobin 17.2 g/dl (14.0-18.0); Imm Gran Abs Auto 0.02 X10*3/uL (0.00-0.03); Imm Gran Pct Auto 0.4 % (0.0-0.4); Lymphocytes Absolute Auto 1.3 X10*3/uL (1.2-4.9); Lymphocytes Percent Auto 25.7 % (20-40); Mean Corpuscular Hemoglobin 30.8 pg (27.0-33.0); Mean Corpuscular Volume 90.5 fL (80.0-98.0); Mean Platelet Volume 11.9 fL (9.4-12.4); Monocytes Absolute Auto 0.5 X10*3/uL (0.1-1.2); Monocytes Percent Auto 10.3 % (2-11); Neutrophils Percent Auto 58.9 % (45-73); Platelet Count 113 X10*3/uL (160-400); Red Blood Count 5.59 X10*6/uL (4.60-5.80); Red Cell Distribution Width 14.2 % (11.0-16.0); White Blood Count 5.1 X10*3/uL (4.8-10.8)
--- NOTE | 2023-09-22 10:11 | PM.HEMONCPN ---
Medical Summary - Medical Summary Date of Service: 09/22/23 Chief complaint: FOLLOW-UP FOR: THROMBOCYTOPENIA. [facility] Summary: DIAGNOSIS: THROMBOCYTOPENIA. Interval History Interval history: Alvaro Wahl is a 68 year old gentleman, here for a follow-up visit. He tells me there is no changes in his medical history nor medications. Denies easy bruising nor systemic bleeding. He is feeling well, denies feeling tired. He is retired no so can take a nap in the afternoon. No fever chills or night sweats. No headache no dizziness. No chest pain or trouble breathing. He denies any abdominal pain nausea vomiting heartburn indigestion. Bowels are working without any gross blood in it. Appetite is fine. Weight is stable. He had a colonoscopy couple of years ago. He denies dysuria or hematuria. No joint pain or muscle pain. Denies any focal weakness. Denies depression. No skin rashes or pruritus. PRESENTING HISTORY: referred by Mike florentino, on account of thrombocytopenia. CBC from 07/05/2023: WBC 4.6, HGB 16, HCT 48.3, MCV 93.8, PLT 126. CBC from 06/02/2023: WBC 4.6, HGB 15.8, HCT 47, PLT 146. FAMILY HISTORY: Brother had lung cancer he was a nonsmoker. PERSONAL HISTORY: He worked in [employer] with the [employer] in [employer]. He is . He has no children. He has been smoking a pack a day since age of 13. He used to drink heavily in his 30s and 40s now he would drink a couple of beers a month. Review of Systems - Constitutional Reports no additional constitutional complaints, Denies lack of energy, Denies malaise, Denies weight loss - Eyes Reports no additional eye complaints - ENT Reports no additional ear, nose, mouth, and throat complaints - Cardiovascular Reports no additional cardiovascular complaints - Respiratory Reports no additional respiratory complaints - Gastrointestinal Reports no additional gastrointestinal complaints - Genitourinary Genitourinary: Reports no additional male genitourinary complaints - Musculoskeletal Reports no additional musculoskeletal complaints - Integumentary/Breasts Skin/Breast: Reports no additional skin complaints - Neurologic Reports no additional neurologic complaints - Psychiatric Reports no additional psychiatric complaints - Endocrine Reports no additional endocrine complaints - Hematologic/Lymphatic Reports no additional hematologic/lymphatic complaints - Allergic/Immunologic Reports no additional allergic/immunologic complaints [facility] Medical History: Medical History (Last Reviewed 09/22/23 @ 10:05 by Anna Balderrama) Dyslipidemia Smoker Functional capacity: independent ambulation Family History: Family History (Last Reviewed 09/22/23 @ 10:05 by Anna Balderrama) Brother Stage 4 lung cancer Social History: Social History (Last Reviewed 09/22/23 @ 10:05 by Anna Balderrama) Living Situation History: Household Members: Spouse Housing: House Alcohol History Details: 1. How often do you have a drink containing alcohol?: b. Monthly or less Tobacco History: Patient Tobacco Use Status: Current everyday Tobacco Tobacco use type: Cigarette Cigarette Packs Per Day: 1 e-Cigarette/Vaping Use: Never Used Second Hand Smoke Exposure: No Substance Use History: Use of substances other than those prescribed or required for medical reasons: No Domestic Abuse History: Have you been hit, kicked, punched, or otherwise hurt by someone within the past year? If so, by whom?: No Do you feel safe in your current relationship?: Yes Homicidal Assessment: Do you have thoughts of harming others: None Do you have a plan to hurt others: No Plan Nutrition Assessment: Patient : No 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 Current occupational status: retired Oncology Screenings - ECOG Performance Status ECOG Performance Status: 0 Home Medications and Allergies Allergies Allergy/AdvReac Type Severity Reaction Status Date / Time pectin Allergy Swelling Verified 09/22/23 10:05 Exam Vital signs: Vital Signs Pulse 75 09/22/23 10:05 BP 130/81 07/22/23 11:19 Pulse Ox 99 09/22/23 10:05 O2 Del Method Room Air 09/22/23 10:05 Intake & Output 09/21/23 09/22/23 09/22/23 18:59 06:59 18:59 Other: Weight 80.8 kg [place] Weight in Grams 53216 Weight 80.8 kg BMI result Body Mass Index 25.6 - Constitutional Present: no acute distress - Routine HEENT Exam Head: Present: normal inspection, normocephalic Eye: Present: normal appearance ENT: Present: mucous membranes moist - Routine Neck Exam Present: full ROM - Routine Respiratory Exam Present: CTAB - Routine Cardiovascular Exam Cardiovascular: Present: RRR, S1, S2 - Routine Abdominal Exam Present: soft, nontender - Routine Extremities Exam Present: normal inspection - Routine Back/Spine/Pelvis Exam Back/Spine: Present: full ROM - Routine Skin Exam Present: intact - Routine Neurological Exam Present: alert, oriented X3 - Routine Psychiatric Exam Present: normal affect Data - Labs CBC & Chem 7: 09/22/23 10:03 09/22/23 10:03 Labs: Laboratory Last Values WBC 4.6 X10*3/uL (4.8-10.8) L 07/22/23 11:55 RBC 5.47 X10*6/uL (4.60-5.80) 07/22/23 11:55 Hgb 16.8 g/dl (14.0-18.0) 07/22/23 11:55 Hct 49.9 % (42.0-52.0) 07/22/23 11:55 MCV 91.2 fL (80.0-98.0) 07/22/23 11:55 MCH 30.7 pg (27.0-33.0) 07/22/23 11:55 MCHC 33.7 g/dl (31.0-36.0) 07/22/23 11:55 RDW 14.1 % (11.0-16.0) 07/22/23 11:55 Plt Count 117 X10*3/uL (160-400) L 07/22/23 11:55 MPV 12.0 fL (9.4-12.4) 07/22/23 11:55 Immature Gran % (Auto) 0.4 % (0.0-0.4) 07/22/23 11:55 Neut % (Auto) 63.1 % (45-73) 07/22/23 11:55 Lymph % (Auto) 22.7 % (20-40) 07/22/23 11:55 [place] % (Auto) 10.5 % (2-11) 07/22/23 11:55 Eos % (Auto) 2.0 % (0-4) 07/22/23 11:55 Baso % (Auto) 1.3 % (0-2) 07/22/23 11:55 Lymph # (Auto) 1.0 X10*3/uL (1.2-4.9) L 07/22/23 11:55 [place] # (Auto) 0.5 X10*3/uL (0.1-1.2) 07/22/23 11:55 Eos # (Auto) 0.1 X10*3/uL (0.0-0.4) 07/22/23 11:55 Baso # (Auto) 0.1 X10*3/uL (0.0-0.2) 07/22/23 11:55 Abs Immat Gran (auto) 0.02 X10*3/uL (0.00-0.03) 07/22/23 11:55 Absolute Neuts (auto) 2.9 x10*3/uL (2.0-8.3) 07/22/23 11:55 Absolute Nucleated RBC 0.000 X10*3/uL (0.0-0.012) 07/22/23 11:55 Nucleated RBC % (auto) 0.0 /100WBC (0.0-0.2) 07/22/23 11:55 ESR 3 MM/HR (0-15) 07/22/23 11:55 Sodium 139 mmol/L (135-145) 07/22/23 11:55 Potassium 4.2 mmol/L (3.3-5.1) 07/22/23 11:55 Chloride 103 mmol/L (96-108) 07/22/23 11:55 Carbon Dioxide 29 mmol/L (22-29) 07/22/23 11:55 Anion Gap 11 (12-20) L 07/22/23 11:55 BUN 13 mg/dL (9-16) 07/22/23 11:55 Creatinine 1.11 mg/dL (0.5-1.4) 07/22/23 11:55 Estim Creat Clear Calc 66.6 07/22/23 11:55 Estimated GFR > 60 07/22/23 11:55 Random Glucose 96 mg/dL (60-115) 07/22/23 11:55 Calcium 9.6 mg/dL (8.4-10.2) 07/22/23 11:55 Total Bilirubin 0.5 mg/dL (0.0-1.0) 07/22/23 11:55 AST 17 U/L (5-37) 07/22/23 11:55 ALT 20 U/L (0-40) 07/22/23 11:55 Alkaline Phosphatase 102 U/L (39-117) 07/22/23 11:55 Lactate Dehydrogenase 156 U/L (118-273) 07/22/23 11:55 Total Protein 7.3 g/dL (6.5-8.0) 07/22/23 11:55 Albumin 4.4 g/dL (3.5-5.0) 07/22/23 11:55 Hold Yellow Top See Note 09/22/23 10:03 IgG Total 767 mg/dL (600-1540) 07/22/23 11:55 IgA Total 218 mg/dL (70-320) 07/22/23 11:55 IgM 80 mg/dL (50-300) 07/22/23 11:55 JAMIL Interpretation SEE NOTE 07/22/23 11:55 Rheumatoid Factor 15.4 IU/mL (<15.0) H 07/22/23 11:55 JO Screen POSITIVE (NEGATIVE) A 07/22/23 11:55 JO Titer 1:320 titer H 07/22/23 11:55 JO Titer 2 TNP 07/22/23 11:55 JO Titer 3 TNP 07/22/23 11:55 JO Pattern Nuclear, Speckled A 07/22/23 11:55 JO Pattern 2 TNP 07/22/23 11:55 JO Pattern 3 TNP 07/22/23 11:55 Hep Bs Antigen Negative (Negative) 07/22/23 11:55 Hep Bs Antibody NONREACTIVE (Nonreactive) 07/22/23 11:55 Hep B Core Total Ab Nonreactive (Nonreactive) 07/22/23 11:55 Hepatitis C Ab (EIA) Nonreactive (Nonreactive) 07/22/23 11:55 HIV 1&2 Ab/P24 Ag 4thGn Nonreactive (Nonreactive) 07/22/23 11:55 Assessment and Plan Patient Active problem list reviewed?: Yes (1) Thrombocytopenia Status: Acute Assessment and plan: This is a pleasant 68-year-old gentleman, who is in good general health. He has been noted to have thrombocytopenia. DIFFERENTIAL DIAGNOSIS: 1. RELATED TO INFECTION: Chronic infection like HIV versus hepatitis. 2. MEDICATION RELATED: He is on atorvastatin. There are recent reports of statin induced thrombocytopenia. Among these atorvastatin appears to be the most common want to cause this complication. 3. ITP: Is also a possibility. 4. COLLAGEN VASCULAR DISORDER: Is in the differential. SLE versus rheumatoid arthritis. 5. UNDERLYING MYELO INFILTRATIVE DISORDER: MULTIPLE MYELOMA , MDS OR LYMPHOMA. I proceeded with further evaluation. Checked CBCD: WBC 4.6, HGB 16.8, HCT 49.9, PLT 117. Checked collagen vascular profile: ESR 3, RA 15.6, JO: positive 1:320, nuclear and speckled pattern. Checked LDH: 156. Checked an SIEP: Normal. Renal ultrasound revealed: Negative for splenomegaly. Infrarenal abdominal aortic aneurysm measuring 3.6 cm. Left common iliac artery aneurysm measuring 3.1 cm. Vascular surgery referral is recommended. Possible 2 mm nonobstructing calculus mid right kidney. He is doing very well. No easy bruising nor systemic bleeding. PLAN: I will refer him to vascular surgery for further monitoring of the aneurysms. He will hold the atorvastatin for now. I will follow the platelet count over time. If it continues to drop, will proceed with a bone marrow exam for further evaluation. Will check a flow cytometry of his peripheral blood next time. He was advised to stay away from nonsteroidals and aspirin. All his questions were answered to satisfaction. He will return in 2 months for a follow-up visit. Thank you, Cc: Dr. Florentino. - Time Spent With Patient Time Spent with Patient (in minutes): 25
[2023-09-22 10:27] LABS: Alanine Aminotransferase 15 U/L (0-40); Albumin Level 4.2 g/dL (3.5-5.0); Alkaline Phosphatase 93 U/L (39-117); Anion Gap 14 (12-20); Aspartate Amino Transferase 17 U/L (5-37); Bilirubin Total 0.3 mg/dL (0.0-1.0); Blood Urea Nitrogen 14 mg/dL (9-16); Calcium 9.4 mg/dL (8.4-10.2); Carbon Dioxide 26 mmol/L (22-29); Chloride 104 mmol/L (96-108); Creatinine Clr Calc Pharmacy 75.5; Estimated Glomerular Filt Rate > 60; Glucose Random 95 mg/dL (60-115); Potassium 4.6 mmol/L (3.3-5.1); Sodium 139 mmol/L (135-145)
--- NOTE | 2023-09-22 10:40 | MHC.HEMONCMA ---
patient seen today for thrombocytopenia, vss, labs, folowing up with provider in2 months - referral sent to DR SOUZA
--- NOTE | 2023-11-08 11:05 | MHC.HEMONCMA ---
patient was scheduled for kimberly 10/31 at 1130
== END 2023-11-17 | disposition home or self-care (01) ==
LOC: HO.ONC 10:00
PROVIDERS: PCP Nurse Practitioner Family; Visit Provider Internal Medicine Medical Oncology
DX: D69.6 Thrombocytopenia, unspecified (principal)
CPT/HCPCS: 36415; 80053; 82784; 83615; 85025; 85652; 86038; 86039; 86334; 86431; 86704; 86706; 86803; 87340; 87389; 99204; 99212

== ENCOUNTER 2023-10-17 16:15 | Outpatient (REF) | payer MEDICARE, OTHER, SELFPAY ==
--- NOTE | ~2023-10-17 | CT_ITS ---
EXAMINATION: CT CHEST SCREENING CLINICAL INFORMATION: Nicotine dependence smoking 1 pack per day for a total of 55 years. COMPARISON: CT lung screening 09/01/2022. TECHNIQUE: Multidetector volumetric CT imaging of the chest is performed without contrast using low dose technique. Additional 2D coronal and sagittal reformatted images and axial 3D maximum intensity projection (MIP) images are generated on the CT workstation. This CT examination was performed using dose optimization techniques as appropriate, variously including the following: *Automated exposure control *Adjustment of mA and/or kV according to patient size (this includes techniques or standardized protocols for targeted exams where dose is matched to indication/reason for exam; i.e. extremities or head) *Use of iterative reconstruction technique DLP: 62 mGy-cm FINDINGS: LUNGS: Mild emphysematous changes are present. Previously seen 4 mm pleural-based nodular density in the right upper lobe anteriorly abutting the mediastinum is unchanged (5:206 compare prior 6:175). A similar 4 mm nodule in the left upper lobe abutting the mediastinum is also unchanged (5:286 compare prior 6:261). No new or worrisome lung nodule is seen. MEDIASTINUM: Heart size normal. Some shotty mediastinal lymph nodes are seen but there is no adenopathy. CORONARY ARTERY CALCIFICATION: Moderate. PLEURA: There is no pleural effusion. No pleural mass or thickening. AXILLA: There are shotty small unchanged axillary lymph nodes present but no lymphadenopathy. UPPER ABDOMEN: Unremarkable OSSEOUS STRUCTURES: Unremarkable. CT/CT lung screening IMPRESSION: Two (2) 4 mm nodules are unchanged. No new or worrisome lung mass. No finding present to suggest malignancy. ASSESSMENT: Lung-RADS category 2: Benign RECOMMENDATION: Routine annual low-dose CT screening in 12 months.
== END 2023-10-17 16:16 | disposition home or self-care (01) ==
LOC: HO.CT 16:15
PROVIDERS: PCP Nurse Practitioner Family; Visit Provider Nurse Practitioner Family
DX: Z12.2 Encounter for screening for malignant neoplasm of respiratory organs (principal); F17.210 Nicotine dependence, cigarettes, uncomplicated
CPT/HCPCS: 71271

== ENCOUNTER 2023-11-01 11:18 | Outpatient (AMB) | payer MEDICARE, OTHER, SELFPAY ==
[2023-11-01 11:26] VITALS: BMI 25.5
--- NOTE | 2023-11-01 11:26 | MHC.OFFVIS ---
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 Has no abdominal pain. 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 He had actually been seen by Hematology-Oncology and his primary care. He has been worked up by Heme-Onc for thrombocytopenia. Upon workup there was an abdominal CT which was done for question of splenomegaly and at that time they found at a iliac artery aneurysm measuring 3.1 cm. He does have a history of smoking about a pack a day. He is a nondiabetic. 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 Now presents to us for vascular evaluation [facility] Medical History Dyslipidemia Smoker Family History Brother Stage 4 lung cancer Social History Household Members: Spouse Housing: House Patient Tobacco Use Status: Current everyday Tobacco user Tobacco use type: Cigarette Cigarette Packs Per Day: 1 e-Cigarette/Vaping Use: Never Used Second Hand Smoke Exposure: No service: Yes Current occupational status: retired Cognitive needs: No Hearing needs: No Vision needs: No Review of Systems Const All systems reviewed & are unremarkable except as noted in HPI and below Reports no additional complaints ENT Reports Normal hearing present Card Denies chest pain, Denies chest pain at rest, Denies chest pain with activity and Denies pedal edema Resp Denies cough GI Denies abdominal pain Musc Denies abnormal gait, Denies muscle cramps and Denies radiating pain into limb Skin/Breast Denies skin ulcer and Denies wounds Neuro Reports Normal hearing present and Denies abnormal gait Psych Reports no additional complaints Physical Exam Vital Signs: BMI result Body Mass Index 25.5 Const General: cooperative, healthy appearing and comfortable Orientation/consciousness: oriented to person, oriented to place and oriented to time HEENT Head: Yes normal to inspection Neck Neck: Yes normal visual inspection Carotids: no bruits Chest Chest palpation & inspection: normal inspection of the chest Resp Effort & Inspection: normal respiratory effort and able to speak in complete sentences Auscultation: clear to auscultation bilaterally, no crackles, no rales, no rhonchi and no wheezes Cardio Rate: regular rate Rhythm: regular rhythm Heart sounds: S1 normal heart sound present and S2 normal heart sound present Bruits: no carotid bruits Peripheral pulses: Peripheral pulses 2+ throughout GI Inspection: Yes normal to inspection Skin Wounds: no wounds Hair: normal Neuro General: oriented to person, oriented to place and oriented to time Cranial nerves: Yes CN's II-XII intact bilaterally and Yes Normal hearing present Cognition (Neuro): normal cognition Motor exam (neuro): 5/5 motor strength present throughout Extrem Other: venous exam: No significant superficial varicosities or spider telangiectasias, minimal edema General: No clubbing, No cyanosis and No edema Psych Appearance: grossly normal Mental Status: mental status grossly normal Speech and movement: Normal speech and movement present Results Reviewed Results Reviewed: Abdominal ultrasound dated 08/04/2023 demonstrates left common iliac artery aneurysm of 3.1 cm. Assessment & Plan Assessment & Plan (1) Iliac artery aneurysm: Code(s): I72.3 - Aneurysm of iliac artery Plan: In short patient has radiologic evidence of a iliac artery aneurysm. We have discussed the pathophysiology of aortic aneurysms and the risk of ruptures. We have discussed rupture risk based on size. In addition we have discussed conservative measures and risk factor modification for prevention of increase in size of the aneurysm. In order to better elucidate the size of this we will obtain a CT angiogram.. Thank you for allowing us to participate in the care of this patient Orders: Orders Creatinine 11/01/23 I72.3 - Aneurysm of iliac artery Blood Urea Nitrogen 11/01/23 I72.3 - Aneurysm of iliac artery CT angio abdomen pelvis 2 Days I72.3 - Aneurysm of iliac artery Coding Level of Care Code New Pt Level 4 (32810) Diagnoses Iliac artery aneurysm I72.3
== END 2023-11-01 12:16 | disposition home or self-care (01) ==
PROVIDERS: PCP Nurse Practitioner Family; Visit Provider Surgery Vascular Surgery
DX: I72.3 Aneurysm of iliac artery (principal)
CPT/HCPCS: 99204

== ENCOUNTER 2023-11-01 11:18 | Outpatient (REF) | payer MEDICARE, OTHER, SELFPAY ==
[2023-11-01 13:30] LABS: Blood Urea Nitrogen 11 mg/dL (9-16); Estimated Glomerular Filt Rate > 60
== END 2023-11-01 11:19 | disposition home or self-care (01) ==
LOC: HO.LAB 11:18
PROVIDERS: PCP Nurse Practitioner Family; Visit Provider Surgery Vascular Surgery
DX: I72.3 Aneurysm of iliac artery (principal)
CPT/HCPCS: 36415; 82565; 84520; 99202

== ENCOUNTER 2023-11-14 07:49 | Outpatient (REF) | payer MEDICARE, OTHER, SELFPAY ==
--- NOTE | ~2023-11-14 | CT_ITS ---
EXAMINATION: CTA ABDOMEN AND PELVIS CLINICAL INFORMATION: Aneurysm of iliac artery TECHNIQUE: Multiple axial images were obtained through the abdomen and pelvis before and after administration of 80 mL of Omnipaque 350 intravenously. Images were evaluated on independent dedicated 3-D workstation and 3-D images were reconstructed with concurrent radiologist supervision and subsequently interpreted. Specific vascular measurements are placed directly on the 3-D rendered images and are documented and stored in PACS. This CT examination was performed using dose optimization techniques as appropriate, variously including the following: *Automated exposure control. *Adjustment of mA and/or kV according to patient size (this includes techniques or standardized protocols for targeted exams where dose is matched to indication/reason for exam, i.e., extremities or head). *Use of iterative reconstruction technique. COMPARISON: Abdominal ultrasound 08/04/2023, CT chest 02/04/2017 DLP: 225 mGy-cm. FINDINGS: VASCULAR: Abdominal aorta: Infrarenal abdominal aortic aneurysm measuring 3.5 x 3 cm. Iliac arteries: Ectatic proximal right common iliac artery measuring 1.5 cm. Left common iliac artery aneurysm measuring 2.5 cm in diameter and 3.6 cm in length. Otherwise patent with scattered atherosclerotic plaque. Mesenteric arteries: The celiac artery is patent. The SMA is patent. The BAILEY is patent. Renal arteries: Patent bilateral renal arteries. NONVASCULAR: Lung Bases: The lungs are clear with no evidence of inflammation or nodules. Liver, Gallbladder, Biliary Tree: The liver is normal in size. Hyperenhancing region next to the gallbladder fossa measuring 1.5 cm, likely a flash filling hemangioma. The gallbladder is unremarkable with no evidence of radiopaque gallstones, gallbladder wall thickening, or pericholecystic inflammatory changes. Pancreas: Unremarkable. Spleen: Unremarkable. Adrenal Glands: Low-density nodule in the left adrenal gland measuring 1.3 cm stable since 2017. Right adrenal nodule measuring 1.2 cm. Kidneys and Ureters: The kidneys are normal in size, shape, and attenuation. No hydronephrosis or hydroureter or calculi seen. No perinephric stranding. Bladder: Unremarkable. Gastrointestinal Tract: Severe colonic diverticulosis. The large and small bowel are normal in caliber. Abdominal Wall: No hernia is demonstrated. Lymph Nodes: Normal. Pelvic Viscera: Prostatomegaly. Osseous Structures: Mild degenerative changes of lumbar spine most pronounced at L5-S1. CT/CT angio abdomen pelvis IMPRESSION: 1. Infrarenal abdominal aortic aneurysm measuring up to 3.5 cm in diameter. Recommend followup every 2 years. Reference: J Am Rola Radiol 2013; 10 (10): 789-794. 2. Left common iliac artery aneurysm measuring 2.5 cm in diameter. 3. Left-sided low density adrenal nodule measuring 1.3 cm. Adrenal nodules of any size exhibiting a CT density of =<10 HU are overwhelmingly likely to represent lipid rich benign adenomas for which no follow-up imaging is recommended. 4. Right-sided intermediate density adrenal nodule measuring 1.2 cm. Recommend 1-year followup adrenal protocol CT. Also, if clinically indicated, consider concurrent laboratory evaluation for possible pheochromocytoma.
[2023-11-14] MEDS: iohexoL 350 MG/ML 75 ML INFUS..BTL 80 ML IV (08:24)
== END 2023-11-14 07:50 | disposition home or self-care (01) ==
LOC: HO.CT 07:49
PROVIDERS: PCP Nurse Practitioner Family; Visit Provider Surgery Vascular Surgery
DX: I72.3 Aneurysm of iliac artery (principal)
CPT/HCPCS: 74174; Q9967